=== PATIENT | male | born 1980 | race African-American/Black ===

== ENCOUNTER 2016-12-21 14:56 | Emergency (ER) | payer OTHER ==
--- NOTE | ~2016-12-21 | CR285 ---
[facility]. [facility] A Service of [facility] & [facility] RADIOLOGY TEXT RESULTS PATIENT: LAKESHIA LO LOCATION: SED : 84 UNIT #: [id number] AGE: [address]: Lela Sarabia APRN SEX: M ORDER DR: [id number] [place] [id number] E MR#: [id number] Acc #: [id number] NAME: LAKESHIA LO : 1980 SEX: M STUDY DATE/TIME: 12/21/2016 14:43 UNIT: SED ROOM: STUDY DESCRIPTION: CR Wrist W Navicular Min 3 Lt Attending Physician: Lela Sarabia A.P.R.N. Ordering Physician: Lela Armstrong A.P.R.N. Primary Care Physician: Primary Care Physician No MEDICAL IMAGING REPORT This report is preliminary unless electronic signature is present. EXAM Left wrist, 12/21 INDICATIONS Generalized wrist pain since wrestling with kids last night. FINDINGS 4 views of the left wrist were obtained, including a navicular view. No comparison. No acute fracture or malalignment is seen. There is a small, well-corticated bone fragment on the dorsal side of the wrist. This is presumably related to prior trauma. Soft tissues are unremarkable. IMPRESSION No acute findings in the wrist. Dictated by... Anival Oconnor Jr., M.D. THIS IS AN ELECTRONICALLY VERIFIED REPORT Anival Oconnor Jr., M.D. at 12/21/2016 10:31 PM AKIRA/balwinder TD: 12/21/2016 19:30 JOB #: [id number] MEDICAL IMAGING REPORT
[~2016-12-21 14:56] MED LIST: ANUSOL-HC CREAM30 G1 EXT; BACTRIM DS TABL1 TAB PO; DICLOFENAC PO; DOCUSATE SODIU100 MG PO; FLEXERIL PO; FLEXERIL10 MG PO; MEDROL4 MG/DOSE- PO; NAPROXEN250 MG PO; NO MEDICATIONS
== END 2016-12-21 15:16 | disposition home or self-care (01) ==
LOC: SED 14:56
DX: S63.502A Unspecified sprain of left wrist, initial encounter (principal); F17.210 Nicotine dependence, cigarettes, uncomplicated; X50.9XXA Other and unspecified overexertion or strenuous movements or postures, initial encounter; Y92.009 Unspecified place in unspecified non-institutional (private) residence as the place of occurrence of the external cause
CPT/HCPCS: 29260; 73110; 99283